=== PATIENT | female | born 1980 | race Caucasian/White ===

== ENCOUNTER 2019-01-17 15:51 | Emergency (ER) | payer SELFPAY ==
[~2019-01-17] VITALS: Ht 162.6 cm; Wt 46.7 kg
--- NOTE | 2019-01-17 17:05 | NUR ---
PT PRESENTED TO THE ER WITH A C/O N/V/D [employer]. PT HAS ACTIVE BS IN ALL 4 QUADRANTS. PT STATED THAT SHE HAD A CHOLESYSTECTOMY AND HAS HAD PANCREATITIS IN THE PAST. PT STATED THAT HER SYMPTOMS ARE SIMILAR TO WHEN SHE HAD PANCREATITIS. PT IS AMBULATORY WITH A STEADY GAIT. PT IS ON THE MONITOR AND CONTINUOUS PULSE OX. URINE SAMPLE OBTAINED AND SENT TO LAB. PT STATED THAT SHE TOOK 1000MG TYLENOL EARLIER.
[2019-01-17] MEDS: IV NS 0.9% 1,000 ML BAG IV ONE (17:35)
[2019-01-17] MEDS: ONDANSETRON HCL/PF 4 MG/2 ML VIAL IVP ONE (17:36)
[2019-01-17] MEDS: HYDROMORPHONE INJ 2 MG/ML DISP.SYRIN IV ONE (17:37)
[2019-01-17] MEDS ORDERED: HYDROMORPHONE 1 MG/1 ML DISP.SYRIN ONE (17:38)
[2019-01-17] MEDS ORDERED: ONDANSETRON HCL/PF 4 MG/2 ML VIAL ONE (17:38)
[2019-01-17 17:50] LABS: BASOPHILS # (AUTO) 0.1 /CMM (0.0-0.2); BASOPHILS % (AUTO) 1.1 % (0.0-2.0); EOSINOPHILS % (AUTO) 1.7 % (0.0-6.0); HEMATOCRIT 34 % (33-45); HEMOGLOBIN 10.8 g/dL (11.5-14.8); LYMPHOCYTES # (AUTO) 1.7 /CMM (0.8-4.8); MEAN CORPUSCULAR HGB CONC 32 g/dl (31.0-36.0); MEAN CORPUSCULAR VOLUME 70 fL (82-100); MONOCYTES # (AUTO) 0.3 /CMM (0.1-1.30); MONOCYTES % (AUTO) 5.9 % (2.0-12.0); NEUTROPHILS # (AUTO) 3.5 /CMM (1.8-8.9); NEUTROPHILS % (AUTO) 61.3 % (43.0-81.0); PLATELET COUNT (AUTO) 401 /CMM (150-450); RED BLOOD CELL COUNT(AUTO) 4.87 MIL/uL (4.0-5.2); WHITE BLOOD COUNT (AUTO) 5.7 K/uL (4.3-11.0)
[2019-01-17 17:53] LABS: APPEARANCE,URINE Clear (CLEAR); BILIRUBIN,URINE Negative (NEGATIVE); BLOOD, URINE Negative Ery/uL (NEGATIVE); COLOR,URINE Yellow (YELLOW); KETONES,URINE Negative (NEGATIVE); LEUKOCYTE ESTERASE ,URINE Negative (NEGATIVE); NITRITE, URINE Negative (NEGATIVE); PROTEIN,URINE Negative (NEGATIVE); UGLUCOSE Negative (NEGATIVE); UROBILINOGEN,URINE 0.2 EU/dL (0.2)
[2019-01-17 17:57] LABS: CALCIUM, SERUM 8.8 mg/dL (8.5-10.1); CREATININE 0.6 mg/dL (0.6-1.3); POTASSIUM 4.1 mmol/L (3.5-5.1)
[2019-01-17 18:08] LABS: ALBUMIN 3.7 g/dL (3.4-5.0); BILIRUBIN,DIRECT 0.1 mg/dL (0.0-0.2); BILIRUBIN,TOTAL 0.2 mg/dL (0.2-1.0)
--- NOTE | 2019-01-17 18:33 | NUR ---
PT WENT TO THE BATHROOM AND USED THE CALL LIGHT. PT WAS TAKEN BACK TO ER BED #14 VIA WC. PT STATED THAT SHE VOMITTED X1 WHILE IN THE BATHROOM AND THEN HAD ANOTHER EPISODE OF DIARRHEA. PT STATED: "I'M NOW AT A LEVEL 9 PAIN". KERRI SALTER NOTIFIED.
--- NOTE | 2019-01-17 18:53 | NUR ---
KERRI SALTER WAS AT THE BEDSIDE SPEAKING TO THE PT. ADM STEPHANIITTING ALSO CAME TO THE BEDSIDE TO VERIFY PT'S SS# AND NAME. PT VERIFIED SS#.
--- NOTE | 2019-01-17 18:55 | NUR ---
PT WAS EATING JELLO AND SPEAKING TO SOMEONE ON THE PHONE. PT HID THE EMPTY JELLO CONTAINER WHEN I CAME TO SPEAK TO HER.
--- NOTE | 2019-01-17 18:55 | NUR ---
IV removed. Catheter intact and site benign. Pressure and 4x4 applied to site. No bleeding noted. Patient discharged to home in stable condition. Written and verbal after care instructions given. Patient verbalizes understanding of instruction.
[2019-01-17 18:58] LABS: EOSINOPHILS % (MANUAL) 1 % (0-4); LYMPHOCYTES % (MANUAL) 28 % (16-48); MONOCYTES % (MANUAL) 3 % (0-11.0); NEUTROPHILS % (MANUAL) 68 (42-76)
[2019-01-17 19:01] VITALS: BP 108/65
== END 2019-01-17 19:01 | disposition home or self-care (01) ==
LOC: ER 15:59
DX: R10.84 Generalized abdominal pain (principal); R11.2 Nausea with vomiting, unspecified; Z76.5 Malingerer [conscious simulation]; Z98.84 Bariatric surgery status; Z90.49 Acquired absence of other specified parts of digestive tract
CPT/HCPCS: 36415; 80048; 80076; 81001; 83690; 84703; 85025; 96361; 96374; 96375; 99283; J1170; J2405; J7030; 81000-TC